=== PATIENT | male | born 1965 | race Caucasian/White ===

== ENCOUNTER 2017-10-09 11:35 | Emergency (ER) | payer BC ==
[~2017-10-09] VITALS: Ht 175.3 cm; Wt 102.1 kg
[~2017-10-09 11:35] MED LIST: ACET325; ALPR.5 PO; CEPH500 PO; CIPR500 PO; CIPRO500 MG PO; CITA20 PO; CLON.5 PO; CLON2 PO; CODACE30 PO; COMPAZINE; CYCL10 PO; ESZO1 PO; Flagyl500 MG PO; HYDACE5 PO; HYDR1TAB94 PO; IBUP200 PO; IBUP800; IBUP800 PO; MEPE50; META800 PO; METR500 PO; Mobic15 MG PO; NAPR550 PO; OXYACE5T PO; PENVK500; PROM25 PO; Percocet 5-3251 EACH PO; RANI150 PO; RXSULTRIDS PO; SULTRIDS PO; TRAM50 PO; TRAZ100 PO; TRAZ50; TRAZ50 PO
[2017-10-09 12:13] LABS: BASOPHILS ABSOLUTE AUTO 0.02 K/mm3 (0.00-0.23); BASOPHILS PERCENT AUTO 0 % (0-2); EOSINOPHILS ABSOLUTE AUTO 0.01 K/mm3 (0.00-0.68); EOSINOPHILS PERCENT AUTO 0 % (0-6); Hematocrit 44.3 % (37.0-53.0); Hemoglobin 15.7 g/dL (13.5-17.5); IMMATURE GRAN ABSOLUTE AUTO 0.02 K/mm3 (0.00-0.10); IMMATURE GRAN PERCENT AUTO 0 % (0-1); LYMPHOCYTES ABSOLUTE AUTO 1.92 K/mm3 (0.84-5.20); LYMPHOCYTES PERCENT AUTO 28 % (21-46); MONOCYTES ABSOLUTE AUTO 0.44 K/mm3 (0.16-1.47); MONOCYTES PERCENT AUTO 6 % (4-13); Mean Corpuscular HGB 31.2 pg (26.0-34.0); Mean Corpuscular HGB Conc 35.4 g/dL (31.5-36.5); Mean Corpuscular Volume 88 fL (80-100); Mean Platelet Volume 8.9 fL (9.1-12.4); NEUTROPHILS ABSOLUTE AUTO 4.53 K/mm3 (1.96-9.15); NEUTROPHILS PERCENT AUTO 65 % (41-73); Platelet Count 297 K/mm3 (150-400); RDW Standard Deviation 41.8 fL (35.1-46.3); Red Blood Cell Count 5.03 M/mm3 (4.30-5.90); White Blood Cell Count 6.94 K/mm3 (4.00-11.30)
[2017-10-09 12:28] LABS: Alanine Aminotransfer (ALT/SGP 29 U/L (12-78); Albumin/Globulin Ratio 0.9 (0.8-1.8); Alk Phos 66 U/L (50-136); Anion Gap 11 mmol/L (6-16); Aspartate Aminotrans (AST/SGOT 24 U/L (12-37); Bilirubin, Total 0.5 mg/dL (0.1-1.0); Blood Urea Nitrogen 10 mg/dL (8-24); CO2, Blood 23 mmol/L (21-32); Calcium, Blood 9.5 mg/dL (8.5-10.1); Chloride, Blood 104 mmol/L (98-108); Creatinine, Blood 0.77 mg/dL (0.60-1.20); Globulin, Blood 4.4 g/dL (2.2-4.0); Glomerular Filtration Rate >60 (60-); Glucose, Blood 100 mg/dL (70-99); Potassium, Blood 3.7 mmol/L (3.5-5.5); Sodium, Blood 138 mmol/L (136-145); Total Protein, Blood 8.4 g/dL (6.4-8.2)
[2017-10-09] MEDS ORDERED: PRAV20 PO (13:58)
[2017-10-09] MEDS ORDERED: DOXE25 PO (13:58)
[2017-10-09] MEDS ORDERED: ONDA4 PO (14:07)
[2017-10-09] MEDS ORDERED: Aspir-Low81 MG PO (14:07)
[2017-10-09] MEDS ORDERED: Omeprazole20 M1 PO (14:07)
[2017-10-09] MEDS ORDERED: ESZO2 PO (14:08)
[2017-10-09] MEDS ORDERED: CHLO25A PO (14:08)
[2017-10-09] MEDS ORDERED: Percocet 10-321 EACH PO (14:11)
[2017-10-09] MEDS ORDERED: Cipro500 MG PO (14:11)
[2017-10-09] MEDS ORDERED: Zofran Odt4 MG SL (14:11)
[2017-10-09] MEDS ORDERED: Flagyl500 MG PO (14:11)
== END 2017-10-09 16:05 | disposition home or self-care (01) ==
LOC: ER 11:35
PROVIDERS: Physician Assistant
DX: K57.32 Diverticulitis of large intestine without perforation or abscess without bleeding (principal); I10 Essential (primary) hypertension; F32.9 Major depressive disorder, single episode, unspecified; Z91.018 Allergy to other foods; Z91.048 Other nonmedicinal substance allergy status; Z88.8 Allergy status to other drugs, medicaments and biological substances; Z88.5 Allergy status to narcotic agent; Z79.899 Other long term (current) drug therapy; Z87.891 Personal history of nicotine dependence
CPT/HCPCS: 36415; 74177; 80053; 81000; 83690; 85025; 96365; 96375; 96376; 99284; J0744; J1885; J2405; J2550; J3010; J7030; Q9967

== ENCOUNTER 2017-10-16 10:59 | Emergency (ER) | payer BC ==
[~2017-10-16] VITALS: Ht 175.3 cm; Wt 99.8 kg
[~2017-10-16 10:59] MED LIST changes: +Aspir-Low81 MG PO; +CHLO25A PO; +Cipro500 MG PO; +DOXE25 PO; +ESZO2 PO; +ONDA4 PO; +Omeprazole20 M1 PO; +PRAV20 PO; +Percocet 10-321 EACH PO; +Zofran Odt4 MG SL
[2017-10-16 12:14] LABS: BASOPHILS ABSOLUTE AUTO 0.04 K/mm3 (0.00-0.23); BASOPHILS PERCENT AUTO 1 % (0-2); EOSINOPHILS PERCENT AUTO 0 % (0-6); Hematocrit 41.3 % (37.0-53.0); Hemoglobin 14.5 g/dL (13.5-17.5); IMMATURE GRAN ABSOLUTE AUTO 0.03 K/mm3 (0.00-0.10); IMMATURE GRAN PERCENT AUTO 0 % (0-1); LYMPHOCYTES ABSOLUTE AUTO 1.56 K/mm3 (0.84-5.20); LYMPHOCYTES PERCENT AUTO 22 % (21-46); MONOCYTES ABSOLUTE AUTO 0.49 K/mm3 (0.16-1.47); MONOCYTES PERCENT AUTO 7 % (4-13); Mean Corpuscular HGB 31.3 pg (26.0-34.0); Mean Corpuscular HGB Conc 35.1 g/dL (31.5-36.5); Mean Corpuscular Volume 89 fL (80-100); Mean Platelet Volume 8.9 fL (9.1-12.4); NEUTROPHILS ABSOLUTE AUTO 5.07 K/mm3 (1.96-9.15); NEUTROPHILS PERCENT AUTO 71 % (41-73); Platelet Count 320 K/mm3 (150-400); RDW Coefficient Variation 13.2 % (11.7-14.2); RDW Standard Deviation 42.9 fL (35.1-46.3); Red Blood Cell Count 4.63 M/mm3 (4.30-5.90); White Blood Cell Count 7.19 K/mm3 (4.00-11.30)
[2017-10-16 12:34] LABS: Alanine Aminotransfer (ALT/SGP 49 U/L (12-78); Albumin, Blood 3.6 g/dL (3.4-5.0); Alk Phos 48 U/L (50-136); Anion Gap 10 mmol/L (6-16); Aspartate Aminotrans (AST/SGOT 30 U/L (12-37); Bilirubin, Total 0.4 mg/dL (0.1-1.0); Blood Urea Nitrogen 9 mg/dL (8-24); CO2, Blood 21 mmol/L (21-32); Calcium, Blood 9.3 mg/dL (8.5-10.1); Chloride, Blood 107 mmol/L (98-108); Creatinine, Blood 0.82 mg/dL (0.60-1.20); Globulin, Blood 3.7 g/dL (2.2-4.0); Glomerular Filtration Rate >60 (60-); Glucose, Blood 94 mg/dL (70-99); Potassium, Blood 4.4 mmol/L (3.5-5.5); Sodium, Blood 138 mmol/L (136-145); Total Protein, Blood 7.3 g/dL (6.4-8.2)
[2017-10-16] MEDS ORDERED: Percocet 5-3251 EACH PO (16:39)
[2017-10-16] MEDS ORDERED: ONDA4ODT MM (16:39)
[2017-10-16] MEDS ORDERED: PROM25 PO (16:39)
== END 2017-10-16 18:24 | disposition home or self-care (01) ==
LOC: ER 10:59
PROVIDERS: Emergency Medicine
DX: K57.32 Diverticulitis of large intestine without perforation or abscess without bleeding (principal); Z88.8 Allergy status to other drugs, medicaments and biological substances; Z88.5 Allergy status to narcotic agent; Z91.018 Allergy to other foods; Z79.899 Other long term (current) drug therapy; Z79.82 Long term (current) use of aspirin; I10 Essential (primary) hypertension; F32.9 Major depressive disorder, single episode, unspecified; Z87.891 Personal history of nicotine dependence
CPT/HCPCS: 36415; 74177; 80053; 83690; 85025; J0780; J2550; J3010; J7030; Q9967

== ENCOUNTER 2018-06-18 07:14 | Day surgery (SDC) | payer BC ==
[~2018-06-18] VITALS: Ht 175.3 cm; Wt 96.6 kg
[~2018-06-18 07:14] MED LIST changes: +ONDA4ODT MM
--- NOTE | 2018-06-18 07:42 | NUR ---
Ambulatory in Day Surgery. Patient states colon prep results clear. History, Chart, Medications and Allergies reviewed before start of procedure. Lungs clear T/O to Auscultation. Patient confirms NPO status and agrees with scheduled surgery. Pre-Op teaching done. Pt verbalizes understanding. Patient States Post-Procedure ride home has been arranged.
--- NOTE | 2018-06-18 08:00 | NUR ---
06/18/18 0800 Bryan Cristina PATIENT DETERMINED TO BE ASA APPROPRIATE FOR PROPOFOL SEDATION PRIOR TO START OF PROCEDURE BY . 3-LEAD EKG REVIEWED WITH PHYSICIAN PRIOR TO START OF PROCEDURE.PATIENT CONFIRMS NPO STATUS AND AGREES WITH SCHEDULED PROCEDURE.History, Chart, Medications and Allergies reviewed before start of procedure.MONITOR INTACT WITH CONTINUOUS PULSE OXIMETRY AND INTERMITTENT BP.O2 VIA N/C INTACT THROUGHOUT SEDATION/PROCEDURE.
--- NOTE | 2018-06-18 08:47 | NUR ---
Patient up to Ambulate independently. Gait steady. Discharge instructions reviewed with patient. Patient verbalizes understanding. Copy given to patient to take home. Discharged via wheelchair to private car for ride home.
== END 2018-06-18 08:50 | disposition home or self-care (01) ==
LOC: ORSCMMR 07:14 → ORD 08:00 → ORSCMMR 08:00
PROVIDERS: Internal Medicine Gastroenterology
PROC: 0DBM8ZX Excision of Descending Colon, Via Natural or Artificial Opening Endoscopic, Diagnostic (ICD-10-PCS; principal; 2018-06-18 08:00)
PROC: 0DBN8ZX Excision of Sigmoid Colon, Via Natural or Artificial Opening Endoscopic, Diagnostic (ICD-10-PCS; principal; 2018-06-18 08:00)
DX: Z12.11 Encounter for screening for malignant neoplasm of colon (principal); K63.5 Polyp of colon; D12.4 Benign neoplasm of descending colon; K57.30 Diverticulosis of large intestine without perforation or abscess without bleeding; F41.9 Anxiety disorder, unspecified; I10 Essential (primary) hypertension; E78.00 Pure hypercholesterolemia, unspecified; Z79.82 Long term (current) use of aspirin; Z79.899 Other long term (current) drug therapy
CPT/HCPCS: 88305; J7120

== ENCOUNTER 2022-02-01 12:05 | Day surgery (SDC) | payer OTHER | END 2022-02-01 23:59 | disposition home or self-care (01) | LOC: WOUND 12:05 | DX: T24.301A Burn of third degree of unspecified site of right lower limb, except ankle and foot, initial encounter (principal); X08.8XXA Exposure to other specified smoke, fire and flames, initial encounter | CPT/HCPCS: A9270; G0463 ==

== ENCOUNTER 2024-03-11 06:43 | Day surgery (SDC) | payer OTHER ==
[~2024-03-11] VITALS: Ht 172.7 cm; Wt 88.8 kg
[2024-03-11] VITALS (31 sets, daily range): BP systolic 97–225; BP diastolic 69–130
[~2024-03-11 06:43] MED LIST changes: +ATOR40TA PO; +CHLO50 PO; +Lactated Ringer's 1,000 ML IV SCH; +OMEP20ER PO; +OTEZLA PO; +TEMA30 PO; +propofoL 60 ML IV ONE
[2024-03-11] MEDS ORDERED: Benzocaine Oral Spray 0.5ML UD ONE (07:00)
--- NOTE | 2024-03-11 07:10 | NUR ---
History, Chart, Medications and Allergies reviewed before start of procedure. Patient confirms NPO status and agrees with scheduled surgery. Patient states colon prep results clear. Patient States Post-Procedure ride home has been arranged. Lungs clear T/O to Auscultation, DIMINISHED IN THE BASES.
--- NOTE | 2024-03-11 07:30 | NUR ---
03/11/24 [id number] Maribell Roy CONFIRMED AND REVIEWED H&P, MEDCICATIONS, ALLERGIES, MEDICAL HISTORY, RESPIRATORY HISTORY, VITAL SIGNS, 3-LEAD EKG, CONSENTS, AND PHYSICIAN ORDERS. PATIENT CONFIRMS NPO STATUS AND AGREES WITH SCHEDULED PROCEDURE. MONITOR INTACT WITH CONTINUOUS PULSE OXIMETRY, CAPNOGRAPHY, 3-LEAD EKG, INTERMITTENT BP. SUPPLEMENTAL O2 TO BE TITRATED THROUGHOUT PROCEDURE TO MAINTAIN O2 SATURATION ABOVE 90%. PATIENT DETERMINED TO BE ASA APPROPRIATE FOR PROPOFOL SEDATION PRIOR TO START OF PROCEDURE BY DR. BELTRAN. MALLAMPATI CLASS 2 AIRWAY: COMPLETE VISUALIZATION OF THE UVULA.
[2024-03-11] MEDS ORDERED: propofoL 20 ML IV ONE (08:18)
--- NOTE | 2024-03-11 09:06 | NUR ---
Discharge instructions reviewed with patient. Patient verbalizes understanding. Copy given to patient to take home. Patient States Post-Procedure ride home has been arranged. Discharged via wheelchair to private car for ride home.
== END 2024-03-11 08:55 | disposition home or self-care (01) ==
LOC: ORSCMMR 06:43 → ORD 07:30 → ORSCMMR 07:30
PROVIDERS: Internal Medicine Gastroenterology
PROC: 0DB48ZX Excision of Esophagogastric Junction, Via Natural or Artificial Opening Endoscopic, Diagnostic (ICD-10-PCS; principal; 2024-03-11 07:30)
PROC: 0DBN8ZX Excision of Sigmoid Colon, Via Natural or Artificial Opening Endoscopic, Diagnostic (ICD-10-PCS; principal; 2024-03-11 07:30)
PROC: 0DBL8ZX Excision of Transverse Colon, Via Natural or Artificial Opening Endoscopic, Diagnostic (ICD-10-PCS; principal; 2024-03-11 07:30)
PROC: 0DB58ZX Excision of Esophagus, Via Natural or Artificial Opening Endoscopic, Diagnostic (ICD-10-PCS; principal; 2024-03-11 07:30)
DX: K22.70 Barrett's esophagus without dysplasia (principal); K21.9 Gastro-esophageal reflux disease without esophagitis; Z12.11 Encounter for screening for malignant neoplasm of colon; Z86.0101 Personal history of adenomatous and serrated colon polyps; D12.5 Benign neoplasm of sigmoid colon; D12.3 Benign neoplasm of transverse colon; Z86.16 Personal history of COVID-19; F41.9 Anxiety disorder, unspecified; I10 Essential (primary) hypertension; E78.00 Pure hypercholesterolemia, unspecified; Z79.899 Other long term (current) drug therapy
CPT/HCPCS: 88305; 88312; A9270; J2704; J7120